=== PATIENT | female | born 1950 | race Caucasian/White ===

== ENCOUNTER → 2017-01-09 | Outpatient (CLI) | payer MEDICARE, OTHER ==
[2017-01-09 13:12] VITALS: BP 115/70; PULSE 66; RESP 18; TEMP 98
--- NOTE | 2017-01-09 13:32 | P.PN ---
Progress Note - Text Patient returns for followup for chronic back pain with radiation to hips. Patient last underwent LESI series ending in March 2014 which helped her significantly with the pain in her low back, and she does not have significant numbness/tingling in her lower extremities. Patient takes no narcotic medications for pain. Patient denies adverse drug effects from medications. Today, pt denies new-onset weakness, bowel/bladder incontinence, or any other signs or symptoms of cauda equina syndrome. There are no signs of acute intoxication, and no indications of medication diversion or overuse. In addition to above, 13-point review of systems is also negative for chest pain , shortness of breath, changes in vision, changes in hearing, new onset weakness , abdominal pain, diarrhea, extreme fatigue, malaise, fever, skin changes, homicidal or suicidal ideation, or bowel or bladder incontinence. Vital Signs: Reviewed in EMR Gen: WDWN, AAOx3, NAD HEENT: NCAT, EOMI, hearing grossly normal Pulm: resp unlabored Abd: soft, NT, ND Neck: supple, trachea midline ROM in flexion lumbar spine: reduced ROM in extension lumbar spine: reduced Lumbar paravertebral tenderness: + Facet loading: + L side SI joint tenderness: + L side Lan's test: neg Straight leg raise: neg Neuro: CN II-XII grossly intact, muscle strength lower extremities PRESERVED Imaging: MRI lumbar spine dated 11/03/2016 demonstrates spinal canal stenosis with hypertrophic facet changes of the T12-L1 level. There is also spinal canal stenosis with narrow anterior-posterior diameter at the L3-L4 level. There are no other facet changes. 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 Assessment: 1. lumbar spinal stenosis 2. scoliosis 3. chronic pain syndrome Plan: 1. Explanation: Opioid and psychological risk scores were reviewed. Diagnoses , prognoses, and multiple treatment options including but not limited to physical therapy, interventional therapies, adjuvant medical therapies, narcotic medication therapies, and surgery were discussed with the patient and all questions were answered to the patient's satisfaction. 2. Opioid agreement: no opioids prescribed today 3. Counseling: The patient was counseled extensively on BODY MASS INDEX, EXERCISE. Specifically, the patient was instructed regarding the importance of weight control, and exercise in the context of both chronic pain and overall health. 4. Procedures: LESI series 5. Consultations: None 6. Investigations: None 7. Medications: none prescribed 8. Disposition: f/u for procedure as scheduled PQRS measures: 1-Patient's medications are documented in the chart. 2-Tobacco use is negative 3-Patient has not had a pneumococcal vaccine. 4-Advanced care planning discussed, patient unable to give. 5-Opioid contract NOT signed with the patient. 6-Pain positive, follow-up visit or procedure scheduled 7-Patient's blood pressure measured and documented, and WNL. 8-Patient's weight was measured, and body mass index ABOVE the normal limits, and counseling was done. Patient instructed to follow up with PCP. 9-Patient WAS NOT identified as an unhealthy alcohol user.
== END ==
LOC: PNWHC3 12:06
PROVIDERS: ATTEND Anesthesiology
DX: M48.06 Spinal stenosis, lumbar region (principal); M41.86 Other forms of scoliosis, lumbar region; Z79.891 Long term (current) use of opiate analgesic
CPT/HCPCS: 99211

== ENCOUNTER 2017-01-14 09:12 | Day surgery (SDC) | payer MEDICARE, OTHER ==
[2017-01-10 12:42] VITALS: BMI 40.7
[~2017-01-14 09:12] MED LIST: LACTATED RINGERS 1,000 ML IV SCH
[2017-01-14 09:54] VITALS: RESP 16; TEMP 97.7
[2017-01-14] MEDS ORDERED: LIDOCAINE 1% 20 ML VIAL (10MG/ML) FOR IV START INTRADERMA ONE (09:59)
--- NOTE | 2017-01-14 10:43 | P.PCN ---
Date of Procedure: 01/14/17 Preoperative Diagnosis: Postoperative Diagnosis: Procedure(s) Performed: Implants: Surgeon: Bob Sauceda Pathology: none sent Condition: stable Disposition: PACU Indications for Procedure: Operative Findings: Description of Procedure: PREOPERATIVE DIAGNOSIS: Lumbar DDD POSTOPERATIVE DIAGNOSIS: Lumbar DDD PROCEDURE: 1. Caudal epidural steroid injection under fluoroscopic guidance. 2. Caudal epidurogram. ANESTHESIA: Local with 1% lidocaine; IV sedation EBL: None. PROCEDURE INDICATION: This is a patient with lumbar DDD and radicular symptoms with uncontrolled pain who presents for caudal CHINTAN today. No use of blood thinners. PROCEDURE DESCRIPTION: The patient was seen and identified in the preoperative area. Risks, benefits, complications, and alternatives were discussed with the patient including but not limited to bleeding, infection, nerve damage, incomplete pain relief, and allergic reactions to medications. The patient agreed to proceed with the procedure and signed the consent. IV was started, and vital signs were stable. Patient was taken to the OR and time out was completed to verify proper patient , procedure, and laterality of pain. The patient was placed in the prone position on procedure table and a pillow was placed under the abdomen to reduce lumbar lordosis. The lumbosacral area was prepped and draped in the usual sterile fashion. Vital signs were closely monitored during the procedure. Using lateral fluoroscopy the anterior-posterior plates of the sacrum were identified and the skin and deeper tissues corresponding into sacrococcygeal ligament were anesthetized using approximately 1 mL of 1% lidocaine. Then under fluoroscopy, a 3-1/2-inch 20-gauge Tuohy epidural needle was guided through the sacrococcygeal ligament, and into the epidural space. After negative aspiration , a 1 mL of omnipaque-300 contrast dye was injected with excellent epidurogram. Again after negative aspiration for CSF, blood, and with no paresthesias, a solution containing Decadron 20mg, 2ml of 1% preservative free lidocaine with 8 ml of preservative free normal saline (total of 12 ml) solution was injected with washout of epidurogram. Needle was withdrawn intact. Skin was cleansed, and bandage was applied. COMPLICATIONS: None. COMMENTS: DISPOSITION / PLANS: The patient was placed in a supine position and transferred to the recovery area in a stable condition for observation and was discharged from the recovery room after meeting discharge criteria. Home discharge instructions given to the patient by the staff. The patient was reexamined prior to discharge. The patient will schedule a repeat procedure ( caudal CHINTAN) in 4-6 weeks.
--- NOTE | 2017-01-14 10:51 | FL ---
EXAMINATION TYPE: FL guided pain mgmt statistic DATE OF EXAM: 01/14/2017 HISTORY: Pain 10 SEC FL, 3 FILMS SCANNED
[2017-01-14 11:35] VITALS: BP 107/66; PULSE 62
== END 2017-01-14 11:45 | disposition home or self-care (01) ==
LOC: ORPAIN 09:12
PROVIDERS: ATTEND Anesthesiology
DX: G89.4 Chronic pain syndrome (principal); M51.16 Intervertebral disc disorders with radiculopathy, lumbar region; M48.06 Spinal stenosis, lumbar region; M41.9 Scoliosis, unspecified
CPT/HCPCS: 62323; J2250; J1100; Q9965; J3010; 99152

== ENCOUNTER 2017-02-06 06:22 | Day surgery (SDC) | payer MEDICARE, OTHER ==
[2017-01-30 14:59] VITALS: BMI 40.7
[2017-02-06] MEDS ORDERED: LACTATED RINGERS 1,000 ML IV SCH (07:15)
[2017-02-06 07:22] VITALS: RESP 18
[2017-02-06] MEDS ORDERED: LIDOCAINE 1% 20 ML VIAL (10MG/ML) FOR IV START INTRADERMA ONE (07:33)
--- NOTE | 2017-02-06 08:02 | P.PCN ---
Date of Procedure: 02/06/17 Preoperative Diagnosis: Postoperative Diagnosis: Procedure(s) Performed: Implants: Surgeon: Bob Sauceda Pathology: none sent Condition: stable Disposition: PACU Indications for Procedure: Operative Findings: Description of Procedure: PREOPERATIVE DIAGNOSIS: Lumbar radiculitis POSTOPERATIVE DIAGNOSIS: Lumbar radiculitis PROCEDURE: 1. Caudal epidural steroid injection under fluoroscopic guidance. 2. Caudal epidurogram. ANESTHESIA: Local with 1% lidocaine; IV sedation EBL: None. PROCEDURE INDICATION: This is a patient with lumbar DDD and radicular symptoms with uncontrolled pain who presents for caudal CHINTAN today. No use of blood thinners. PROCEDURE DESCRIPTION: The patient was seen and identified in the preoperative area. Risks, benefits, complications, and alternatives were discussed with the patient including but not limited to bleeding, infection, nerve damage, incomplete pain relief, and allergic reactions to medications. The patient agreed to proceed with the procedure and signed the consent. IV was started, and vital signs were stable. Patient was taken to the OR and time out was completed to verify proper patient , procedure, and laterality of pain. The patient was placed in the prone position on procedure table and a pillow was placed under the abdomen to reduce lumbar lordosis. The lumbosacral area was prepped and draped in the usual sterile fashion. Vital signs were closely monitored during the procedure. Using lateral fluoroscopy the anterior-posterior plates of the sacrum were identified and the skin and deeper tissues corresponding into sacrococcygeal ligament were anesthetized using approximately 1 mL of 1% lidocaine. Then under fluoroscopy, a 3-1/2-inch 20-gauge Tuohy epidural needle was guided through the sacrococcygeal ligament, and into the epidural space. After negative aspiration , a 1 mL of omnipaque-300 contrast dye was injected with excellent epidurogram. Again after negative aspiration for CSF, blood, and with no paresthesias, a solution containing Decadron 20mg, 2ml of 1% preservative free lidocaine with 8 ml of preservative free normal saline (total of 12 ml) solution was injected with washout of epidurogram. Needle was withdrawn intact. Skin was cleansed, and bandage was applied. COMPLICATIONS: None. COMMENTS: DISPOSITION / PLANS: The patient was placed in a supine position and transferred to the recovery area in a stable condition for observation and was discharged from the recovery room after meeting discharge criteria. Home discharge instructions given to the patient by the staff. The patient was reexamined prior to discharge. The patient will schedule a follow-up in clinic in 4-6 weeks.
[2017-02-06] MEDS ORDERED: IV FLUID CONTINUATION 1,000 ML IV ONE ×2 (08:10)
--- NOTE | 2017-02-06 08:15 | FL ---
EXAMINATION TYPE: FL guided pain mgmt statistic DATE OF EXAM: 02/06/2017 HISTORY: Flouroscopy time 19 seconds of fluoroscopy provided. IMPRESSION: 1. Fluoroscopy time.
[2017-02-06 08:29] VITALS: BP 122/59; PULSE 60
== END 2017-02-06 08:41 | disposition home or self-care (01) ==
LOC: ORPAIN 06:22
PROVIDERS: ATTEND Anesthesiology
DX: G89.4 Chronic pain syndrome (principal); M51.16 Intervertebral disc disorders with radiculopathy, lumbar region; M48.06 Spinal stenosis, lumbar region; M41.9 Scoliosis, unspecified
CPT/HCPCS: 62323; J2250; J1100; J3010; 62264; 99152

== ENCOUNTER → 2017-03-18 | Outpatient (CLI) | payer MEDICARE, OTHER ==
[2017-03-18 10:37] VITALS: BP 154/81; PULSE 78; RESP 16
--- NOTE | 2017-03-18 10:54 | P.PN ---
Progress Note - Text This is a 67-year-old female with axial lower back pain. The patient had 2 caudal epidural steroid injection previously but she only felt 3-4 days of pain relief. The patient is morbidly obese alert oriented 3 no apparent distress. She has positive lumbar facet loading. Neuro exam of the lower extremities showed normal and symmetrical muscle strength but absent deep tendon tendon reflexes bilaterally and symmetrically. The patient denies any weight loss or any bowel or bladder dysfunction ,she also denies any nocturnal pain. I think we should try diagnostic medial branch block due to the patient's axial lower back pain and if it does help her pain then we'll plan on doing RFA in the future.
== END ==
LOC: PNWHC3 10:11
PROVIDERS: ATTEND Anesthesiology
DX: M54.5 Low back pain (principal); E66.01 Morbid (severe) obesity due to excess calories; Z79.891 Long term (current) use of opiate analgesic
CPT/HCPCS: 99211

== ENCOUNTER 2017-04-04 06:28 | Day surgery (SDC) | payer MEDICARE, OTHER ==
[2017-04-01 16:37] VITALS: BMI 40.7
[2017-04-04] MEDS ORDERED: LACTATED RINGERS 1,000 ML IV SCH (07:00)
[2017-04-04 07:10] VITALS: RESP 16; TEMP 97.8
[2017-04-04] MEDS ORDERED: LIDOCAINE 1% 20 ML VIAL (10MG/ML) FOR IV START INTRADERMA ONE (07:10)
--- NOTE | 2017-04-04 07:56 | P.PCN ---
Postoperative Diagnosis: PREOPERATIVE DIAGNOSIS : 1- Lumbar spondylosis with Facet Arthropathy without myelopathy . 2- Lumber degenerative disc disease POSTOPERATIVE DIAGNOSIS: 1- Lumbar spondylosis with Facet Arthropathy without myelopathy . 2- Lumber degenerative disc disease PROCEDURE: Diagnostic bilateral L3 -4 , L4 -5 , and L5-S1 medial branch block under fluoroscopy #1 ANESTHESIA: Local with 1% lidocaine 6 ml ; IV sedation with Versed 2 mg and Fentanyl 100 mcg. EBL: Minimal COMPLICATION: None. IV FLUIDS: 100 mL of normal saline. PROCEDURE INDICATION: Chronic low back pain secondary to Facet arthropathy unresponsive to conservative treatment. PROCEDURE DESCRIPTION: the patient was seen and identified in the preop holding area , risks and benefits and possible complications of the procedure and alternative were discussed with the patient, and the patient agreed to proceed with the procedure and signed the consent IV was started and vital signs monitored during the procedure and fluoroscopy was used to maximize the benefit and accuracy of the needle placement, and sedation was given to decrease patient anxiety, patient was taken to the procedure room and placed in prone position vital signs monitored in the back prepped with chlorhexidine X3 then under strict sterile technique using a right oblique fluoroscopy ,the junction of the transverse process and the superior articulating process of the right L3- 4 , L4- 5, and L5-S1 vertebra which corresponding to the fluoroscopy image of the eye of the Aniceto dog on the block side for the medial branches and subsequently , after local infiltration of skin and subcu tissuies with lidocaine 1% one mL at each level ,then 22- gauge Quincke-type needles , 3 needle was used , each one of them placed at the junction of the base of the transverse process and the superior articular process at the appropriate level, and the needle was advanced until the periosteum contacted, needle placement confirmed with AP oblique and lateral view and after appropriate needle placement confirmed, and after negative aspiration for heme and CSF and there was no paresthesia 1-1/2 mL of Marcaine 0.5% mixed with 40 mg Kenalog , then half mL injected at each level after negative aspiration the needle subsequently removed and the same procedure repeated for the left side at left side at L3-4, L4- 5 and L5-S1 levels. At the end of the procedure and the needles removed and a bandage applied after the skin was cleaned the cleaning solution patient taken to recovery room in stable condition and monitors in the recovery room for 20-30 minutes and discharged home in stable condition after discharge criteria met and patient will follow up with the pain clinic in 2-4 weeks
[2017-04-04] MEDS ORDERED: IV FLUID CONTINUATION 1,000 ML IV ONE (08:00)
[2017-04-04 08:20] VITALS: BP 119/73; PULSE 67
--- NOTE | 2017-04-04 11:37 | FL ---
Fluoroscopy HISTORY: Pain 12 seconds fluoroscopy time supplied to the referring clinician. 4 intraoperative C-arm images docum ent the procedure. See dictated report from anesthesia.
== END 2017-04-04 08:33 | disposition home or self-care (01) ==
LOC: ORPAIN 06:28
PROVIDERS: ATTEND Specialist
DX: G89.29 Other chronic pain (principal); M46.96 Unspecified inflammatory spondylopathy, lumbar region; M51.36 Other intervertebral disc degeneration, lumbar region; M47.816 Spondylosis without myelopathy or radiculopathy, lumbar region; I10 Essential (primary) hypertension
CPT/HCPCS: 64493; 64494; 64495; 99152; J2250; J3301; J3010

== ENCOUNTER → 2017-07-02 | Outpatient (CLI) | payer MEDICARE, OTHER ==
--- NOTE | 2017-07-02 13:05 | US ---
EXAMINATION TYPE: US pelvis complete transvag DATE OF EXAM: 07/02/2017 COMPARISON: NONE CLINICAL HISTORY: N95.0 Post menopausal bleeding. Patient states bleeding for 5 days in March TECHNIQUE: Transvaginal (TV) and Transabdominal (TA) Date of LMP: MATHEMATICS ACADEMIC CHAIR, EXAM MEASUREMENTS: Uterus: 7.4 x 4.4 x 3.4 cm Endometrial Stripe: 0.5 cm 1. Uterus: Retroverted Mid/left echogenic lesion in ESSENCE = 1.6 x 1.7 x 1.8 cm 2. Endometrium: wnl 3. Right Ovary: Obscured by overlying bowel gas 4. Left Ovary: Obscured by overlying bowel gas 5. Bilateral Adnexa: wnl 6. Posterior cul-de-sac: no free fluid IMPRESSION: 1. Intramural left lower uterine segment solitary probable leiomyoma. 2. Endometrial thickness is upper limits of normal for a postmenopausal female. Direct visualization should be considered in this patient with postmenopausal bleeding. 3. Nonvisualization of the ovaries.
== END | disposition home or self-care (01) ==
LOC: RADUSWWP 12:11
PROVIDERS: ATTEND Obstetrics & Gynecology
DX: N95.0 Postmenopausal bleeding (principal)
CPT/HCPCS: 76830; 76856

== ENCOUNTER 2017-07-10 08:28 | Day surgery (SDC) | payer MEDICARE, OTHER ==
[2017-07-03 23:05] VITALS: BMI 40.7
[2017-07-10 09:05] VITALS: TEMP 97.2
[2017-07-10] MEDS ORDERED: LIDOCAINE 1% 20 ML VIAL (10MG/ML) FOR IV START INTRADERMA ONE (09:28)
--- NOTE | 2017-07-10 10:25 | P.PCN ---
Date of Procedure: 07/10/17 Procedure(s) Performed: PREOPERATIVE DIAGNOSIS: 1-Lumbar Spondylosis with Facet Arthropathy without myelopathy. 2- Lumber degenerative disc disease. POSTOPERATIVE DIAGNOSIS: 1- Lumbar Spondylosis with Facet Arthropathy without myelopathy. 2- Lumber degenerative disc disease. PROCEDURES : Right Radiofrequency thermocoagulation, L3-L4, L4-L5, and L5-S1 medial branch, with fluoroscopic guidance ANESTHESIA: Moderate sedation with intravenous versed 2 mg and fentaneyl 100 mcg and local infiltration with lidocaine 1% 6 ml EBL: Minimal PROCEDURE INDICATION: The patient with low back pain secondary to lumbar facet arthropathy who had more than 50% relief of her pain with previous diagnostic lumbar medial branch block with bupivacaine. PROCEDURE DESCRIPTION / TECHNIQUE: The patient was seen and identified in the preoperative area. Risks, benefits, complications, including but not limited to risk of infection ,bleeding , allergic reactions to the medications and no complete pain releife , and alternatives were discussed with the patient, the patient agreed to proceed with the procedure and signed the consent. IV was started. Vital signs remained stable throughout the procedure. Patient was taken to the OR and time out was completed. The patient was placed in the prone position on the procedure table. The lumber area was prepped and draped in the usual sterile fashion. . Vital signs were closely monitored during the procedure .IV sedation was used during the procedure to decrease patients anxiety. Using AP and then oblique fluoroscopy, the ``eye of the Aniceto dog corresponding to the connection between the superior and transverse articular processes of right L3, L4, and L5 were identified, marked, and localized with 1 % lidocaine. Subsequently, a 18 [id number] radiofrequency cannula with a 10- mm active tip was advanced guided by fluoroscopy to each of the ``eyes of the Aniceto dog at right L3, L4, and L5. Each site then underwent sensory testing at 50 Hz and 0 to 1 volt and motor testing at 2.5 Hz and 0 to 3 volt with local stimulation, but no radicular symptoms down the legs. Thereafter the right L3-4, L4-5, and L5-S1 sites underwent radiofrequency thermocoagulation at 80 degrees celsius for 90 seconds after injecting 0.5 ml of PF lidocaine 1%. then After the thermocoagulation done , 1 ml of the block solution containing Kenalog 40 mg and 3 ml of marain 0.5% was injected at the right L3- 4 , L4-5 , and L5-S1, levels after negative aspiration of CSF and blood and with no paresthesias. Cannulas were retracted while injecting lidocaine 1% until the needle is out. At the end of the procedure, the skin was cleansed and bandages were applied. COMPLICATIONS: No acute complications. DISPOSITION / PLANS: The patient was placed in a supine position and transferred to the recovery area in a stable condition for observation and was discharged from the recovery room after meeting discharge criteria. Home discharge instructions given to the patient by the staff. The patient was reexamined prior to discharge. The patient will schedule a follow up in the clinic in 2-4 weeks.
[2017-07-10] MEDS ORDERED: IV FLUID CONTINUATION 800 ML IV ONE (10:44)
[2017-07-10 11:03] VITALS: BP 122/70; PULSE 68; RESP 18
--- NOTE | 2017-07-10 11:20 | FL ---
Fluoroscopy HISTORY: Pain 10 seconds fluoroscopy time supplied to the referring clinician. 3 intraoperative C-arm images docum ent the procedure. See dictated report from anesthesia.
== END 2017-07-10 11:14 | disposition home or self-care (01) ==
LOC: ORPAIN 08:28
PROVIDERS: ATTEND Specialist
DX: M47.816 Spondylosis without myelopathy or radiculopathy, lumbar region (principal); M51.36 Other intervertebral disc degeneration, lumbar region; I10 Essential (primary) hypertension; Z86.718 Personal history of other venous thrombosis and embolism; J45.909 Unspecified asthma, uncomplicated; G47.33 Obstructive sleep apnea (adult) (pediatric)
CPT/HCPCS: 64635; 64636 ×2; J2250; J3301; J3010; 99152

== ENCOUNTER → 2017-08-14 | Outpatient (CLI) | payer MEDICARE, OTHER ==
[2017-08-14 15:06] VITALS: BP 151/81; PULSE 79; RESP 16
--- NOTE | 2017-08-14 15:40 | P.PN ---
Subjective Progress Note Date: 08/14/17 This is 67 years old female with a chronic history of severe low back pain, diagnosed with lumbar spondylosis, with done diagnostic medial branch block which was successful later on we did radiofrequency ablation of the medial branch lumbar area, she reported that the radiofrequency ablation of the medial branch lumbar area helped her low back pain significantly, she is able to ambulate without pain and she is able to do activities of daily livings without any pain, she is very satisfied with the result of the treatment for this reason patient will follow up with the pain clinic when necessary Objective - Vital Signs Vital signs: Vital Signs Temp Pulse 79 08/14/17 14:56 Resp 16 08/14/17 14:56 BP 151/81 08/14/17 14:56 Pulse Ox 93 L 08/14/17 14:56 Intake & Output 08/13/17 08/14/17 08/14/17 18:59 06:59 18:59 Weight 117.934 kg
== END ==
LOC: PNWHC3 14:22
PROVIDERS: ATTEND Specialist
DX: G89.29 Other chronic pain (principal); M47.812 Spondylosis without myelopathy or radiculopathy, cervical region; Z98.890 Other specified postprocedural states
CPT/HCPCS: 99211

== ENCOUNTER → 2017-09-17 | Outpatient (CLI) | payer MEDICARE, OTHER ==
[2017-09-17 13:28] LABS: Collection Time,Urine 24 hrs; Total Volume 24 Hour,Urine 1200 mls (250-2400)
[2017-09-17 13:43] LABS: Total Protein 24 Hour,Urine 96 mg/24hr (42.0-225.0)
== END | disposition home or self-care (01) ==
LOC: LABWHC1 10:08
PROVIDERS: ATTEND Nurse Practitioner Family
DX: N18.3 Chronic kidney disease, stage 3 (moderate) (principal); R80.9 Proteinuria, unspecified
CPT/HCPCS: 81050; 84156

== ENCOUNTER → 2017-10-04 | Outpatient (CLI) | payer MEDICARE, OTHER ==
--- NOTE | 2017-10-04 13:02 | US ---
EXAMINATION TYPE: US kidneys/renal and bladder DATE OF EXAM: 10/04/2017 COMPARISON: NONE CLINICAL HISTORY: N18.3 Chronic kidney disease stage III R60.9 Edema. CKD stage III EXAM MEASUREMENTS: Right Kidney: 10.6 x 4.8 x 3.5 cm Left Kidney: 10.2 x 4.7 x 4.0 cm Technical limitations due to patient's body habitus and overlying bowel content Right Kidney: limited evaluation, hypoechoic area (possible cystic area) upper pole = 2.2 x 2.1 x 2.1 cm Left Kidney: limited evaluation, probable cystic area upper pole = 1.5 x 1.6 x 1.5cm Bladder: appears wnl Bilateral Jets seen: no Bilateral renal cysts have some internal echoes which may be due to technical factors. Complex cyst s hould be considered. Follow-up is recommended. IMPRESSION: Bilateral renal cysts cannot be classified as simple cysts. Follow-up examinations are recommended.
--- NOTE | 2017-10-05 12:26 | ECHOF ---
Referral Reason:N18.3 Chronic kidney disease stage III R60.9 Edema MEASUREMENTS -------- HEIGHT: 170.2 cm WEIGHT: 120.2 kg BP: RVIDd: 2.5 cm (< 3.3) IVSd: 1.4 cm (0.6 - 1.1) LVIDd: 3.9 cm (3.9 - 5.3) LVPWd: 1.4 cm (0.6 - 1.1) IVSs: 1.3 cm LVIDs: 2.5 cm LVPWs: 1.2 cm LAESV Index (A-L): 18.19 ml/m Ao Diam: 3.1 cm (2.0 - 3.7) AV Cusp: 2.1 cm (1.5 - 2.6) LA Diam: 3.2 cm (2.7 - 3.8) MV E Shlomo: 0.71 m/s MV DecT: 368 ms MV A Shlomo: 0.98 m/s MV E/A Ratio: 0.73 AV maxP.97 mmHg AV meanP.21 mmHg RAP: 5.00 mmHg RVSP: 18.49 mmHg FINDINGS -------- Sinus rhythm. This was a technically difficult study with suboptimal views. The left ventricular size is normal. There is mild concentric left ventricular hypertrophy. Overa ll left ventricular systolic function is normal with, an EF between 55 - 60 %. The right ventricle is normal in size and function. Normal LA size by volume 22+/-6 ml/m2. The right atrium is normal in size. 3ml of Lumason was utilized for enhancement of images. Aortic valve is trileaflet and is mildly thickened. There is no evidence of aortic regurgitation. There is mild aortic stenosis present. The mitral valve leaflets are mildly thickened. There is trace to mild mitral regurgitation. Trace tricuspid regurgitation present. Right ventricular systolic pressure is normal at < 35 mmHg. There is no evidence of pulmonary hypertension. The pulmonic valve was not well visualized. The aortic root size is normal. Normal inferior vena cava with normal inspiratory collapse consistent with estimated right atrial pre ssure of 5 mmHg. There is no pericardial effusion. CONCLUSIONS -------- 1. Sinus rhythm. 2. This was a technically difficult study with suboptimal views. 3. The left ventricular size is normal. 4. There is mild concentric left ventricular hypertrophy. 5. Overall left ventricular systolic function is normal with, an EF between 55 - 60 %. 6. Normal LA size by volume 22+/-6 ml/m2. 7. 3ml of Lumason was utilized for enhancement of images. 8. Aortic valve is trileaflet and is mildly thickened. 9. There is mild aortic stenosis present. 10. The mitral valve leaflets are mildly thickened. 11. There is trace to mild mitral regurgitation. 12. Trace tricuspid regurgitation present. 13. Right ventricular systolic pressure is normal at < 35 mmHg. 14. There is no evidence of pulmonary hypertension. 15. The pulmonic valve was not well visualized. 16. The aortic root size is normal. 17. There is no pericardial effusion. [employer] LAB[employer]ER: Finn Huggins RDCS
== END | disposition home or self-care (01) ==
LOC: RADUSMAIN 11:59
PROVIDERS: ATTEND Internal Medicine Nephrology
DX: N28.1 Cyst of kidney, acquired (principal); N18.3 Chronic kidney disease, stage 3 (moderate); I08.0 Rheumatic disorders of both mitral and aortic valves
CPT/HCPCS: 76770; C8929; Q9950; 93306

== ENCOUNTER → 2019-02-02 | Outpatient (CLI) | payer MEDICARE, OTHER ==
--- NOTE | 2019-02-02 12:02 | MM ---
Reason for exam: screening (asymptomatic). Last mammogram was performed 1 year and 8 months ago. History: Patient is postmenopausal. Family history of breast cancer in mother at age 69. Benign core biopsy of the right breast. Physical Findings: A clinical breast exam by your physician is recommended on an annual basis and results should be correlated with mammographic findings. MG 3D Screening Mammo W/Cad Bilateral CC, MLO, and XCCL view(s) were taken. Prior study comparison: June 13, 2017, bilateral MG 3d screening mammo w/cad. April 24, 2016, bilateral MG 3d screening mammo w/cad. There are scattered fibroglandular densities. Benign appearing bilateral calcifications. No suspicious abnormality. No significant changes when compared with prior studies. ASSESSMENT: Benign, BI-RAD 2 RECOMMENDATION: Routine screening mammogram of both breasts in 1 year.
== END | disposition home or self-care (01) ==
LOC: RADMAMWWP 07:04
PROVIDERS: ATTEND Family Medicine
DX: Z12.31 Encounter for screening mammogram for malignant neoplasm of breast (principal)
CPT/HCPCS: 77063; 77067

== ENCOUNTER 2019-04-02 10:12 | Emergency (ER) | payer MEDICARE, OTHER ==
[2019-04-02] MEDS ORDERED: SODIUM CHLORIDE 0.9% 1,000 ML IV STA (10:59)
[2019-04-02] MEDS ORDERED: MECLIZINE 12.5 MG TAB PO STA (10:59)
[2019-04-02] MEDS ORDERED: METOCLOPRAMIDE 5 MG/ML 2 ML VIAL IVP STA (10:59)
--- NOTE | 2019-04-02 11:09 | ED ---
General Adult HPI - General Chief complaint: Dizziness Stated complaint: Dizzy Time Seen by Provider: 04/02/19 10:29 Source: patient Mode of arrival: ambulatory Limitations: no limitations - History of Present Illness Initial comments: Dictation was produced using [employer] ([employer]) dictation software. please excuse any grammatical, word or spelling errors. Chief Complaint: 69-year-old female with past medical history of vertigo pres ents with vertiginous symptoms since Saturday. History of Present Illness: Patient is a 69-year-old female she has past medical history of BPPV. She has been evaluated extensively on outpatient basis by her primary care physician Dr. Mercado. Patient states that she had 1 hour long episode of vertigo on Saturday that resolved on its on. Yesterday she had a whole day of vertiginous symptoms. Feels as though the room spinning. She reports that at rest her symptoms go away. She feels worse when she moves her head towards the right. Patient denies any difficulties ambulating. She does complain of some bilateral ear ringing. She has history of ear infections. She denies any symptoms at rest. She only complains of symptoms with moving. The ROS documented in this emergency department record has been reviewed and confirmed by me. Those systems with pertinent positive or negative responses have been documented in the HPI. All other systems are other negative and/or noncontributory. PHYSICAL EXAM: General Impression: Alert and oriented x3, not in acute distress HEENT: Normocephalic atraumatic, extra-ocular movements intact, pupils equal and reactive to light bilaterally, mucous membranes moist, bilateral TMs clear of effusion Cardiovascular: Heart regular rate and rhythm, S1&S2 audible, no murmurs, rubs or gallops Chest: Lungs clear to auscultation bilaterally, no rhonchi, no wheeze, no rales Abdomen: Bowel sounds present, abdomen soft, non-tender, non-distended, no organ omegaly Musculoskeletal: Pulses present and equal in all extremities, no peripheral edema Motor: no focal deficits noted Neurological: CN II-XII grossly intact, no focal motor or sensory deficits not ed, right beating nystagmus with fast phase to the right. No nystagmus with looking to the left. Skin: Intact with no visualized rashes Psych: Normal affect and mood ED course: 69-year-old female presents with episode of vertigo. She has history of vertigo. All signs upon arrival are within acceptable limits. No concern for central cause of vertigo given that her symptoms are relieved with rest. Laboratory evaluation obtained. CBC and metabolic panel is unremarkable. Patient treated with intravenous fluids, antiemetics and anti-vertiginous medications per she is observed in emergency department for several minutes. She is reevaluated with dramatic improvement of symptoms. He isn't M auditory at baseline. She ambulated to the restroom and back with no complication. She feels well. His point patient's clinical presentation concerning for benign paroxysmal positional vertigo versus other peripheral causes of vertigo. No concern for central cause of vertigo. Patient feels comfortable being discharged she will follow up with a primary care physician. Prescription provided for Antivert. Temperature discussed. Patient clear for discharge. EKG interpretation: Ventricular rate 67, normal sinus rhythm, ID interval 176, QRS 86, QTC 443. No ID prolongation, no QTC prolongation, no ST or T-wave changes noted. No old EKG for comparison Overall, this EKG is unremarkable - Related Data Home Medications Medication Instructions Recorded Confirmed Furosemide [Lasix] 20 mg PO BID 01/11/14 04/02/19 Lovastatin [Mevacor] 40 mg PO DAILY 01/11/14 04/02/19 Metoprolol Succinate [Toprol XL] 50 mg PO QAM 01/11/14 04/02/19 Olmesartan/Hydrochlorothiazide 0.5 tab PO QAM 01/11/14 04/02/19 [Benicar Hct 40-12.5 mg Tablet] rOPINIRole HCL [Requip] 1 mg PO HS 01/11/14 04/02/19 Calcium Citrate/Vitamin D3 1 tab PO DAILY 01/09/17 04/02/19 [Calcitrate + Vit D Caplet] Magnesium 400 mg PO DAILY 01/09/17 04/02/19 Omeprazole [PriLOSEC] 20 mg PO DAILY 01/09/17 04/02/19 traMADol HCL [Ultram] 100 mg PO BID PRN 01/09/17 04/02/19 Albuterol Sulfate [Proventil Hfa] 1 puff INHALATION RT-Q4H PRN 04/02/19 04/02/19 Cholecalciferol [Vitamin D3 (25 1,000 unit PO DAILY 04/02/19 04/02/19 Mcg = 1000 Iu)] Ferrous Sulfate [Feosol] 325 mg PO DAILY 04/02/19 04/02/19 Gabapentin [Neurontin] 100 mg PO TID 04/02/19 04/02/19 Potassium Chloride ER [K-Dur 10] 10 meq PO DAILY 04/02/19 04/02/19 Previous Rx's Medication Instructions Recorded Meclizine [Antivert] 25 mg PO TID PRN #15 tab 04/02/19 Allergies Allergy/AdvReac Type Severity Reaction Status Date / Time No Known Allergies Allergy Verified 04/02/19 11:07 Review of Systems ROS Statement: Those systems with pertinent positive or pertinent negative responses have been documented in the HPI. ROS Other: All systems not noted in ROS Statement are negative. Past Medical History Past Medical History: Asthma, Deep Vein Thrombosis (DVT), Hyperlipidemia, Hypertension, Osteoarthritis (OA), Renal Disease, Sleep Apnea/CPAP/BIPAP Additional Past Medical History / Comment(s): SARCOIDOSIS. DVT RT LEG 1998. NO TX FOR SLEEP APNEA NOW. KIDNEY DISEASE IS STAGE 3. CHRONIC BACK PAIN. History of Any Multi-Drug Resistant Organisms: None Reported Past Surgical History: Joint Replacement, Orthopedic Surgery Additional Past Surgical History / Comment(s): TOTAL RT KNEE. SHANE HIP REPLACEMENTS. PAIN PROCEDURES, D&C. RT KNEECAP STAPELED. EXC SPUR RT FOOT. LT FOOT TENDON SHORTENED. Past Anesthesia/Blood Transfusion Reactions: Postoperative Nausea & Vomiting (PONV) Additional Past Anesthesia/Blood Transfusion Reaction / Comment(s): PONV AFTER SPINAL/HEADACHE Past Psychological History: No Psychological Hx Reported Smoking Status: Never smoker Past Alcohol Use History: None Reported Past Drug Use History: None Reported - Past Family History Mother Family Medical History: Cancer Father Family Medical History: Cancer General Exam Limitations: no limitations Course Vital Signs 04/02/19 10:14 Temperature 97.4 F L Pulse Rate 67 Respiratory 20 Rate Blood Pressure 149/79 O2 Sat by Pulse 99 Oximetry Medical Decision Making - Lab Data Result diagrams: 04/02/19 11:15 04/02/19 11:15 Lab Results 04/02/19 04/02/19 Range/Units 11:15 11:15 WBC 5.0 (3.8-10.6) k/uL RBC 4.05 (3.80-5.40) m/uL Hgb 12.3 (11.4-16.0) gm/dL Hct 37.3 (34.0-46.0) % MCV 92.0 (80.0-100.0) fL MCH 30.4 (25.0-35.0) pg MCHC 33.0 (31.0-37.0) g/dL RDW 13.1 (11.5-15.5) % Plt Count 193 (150-450) k/uL Neutrophils % 78 % Lymphocytes % 13 % Monocytes % 5 % Eosinophils % 2 % Basophils % 1 % Neutrophils # 3.9 (1.3-7.7) k/uL Lymphocytes # 0.7 L (1.0-4.8) k/uL Monocytes # 0.2 (0-1.0) k/uL Eosinophils # 0.1 (0-0.7) k/uL Basophils # 0.0 (0-0.2) k/uL Sodium 140 (137-145) mmol/L Potassium 4.2 (3.5-5.1) mmol/L Chloride 103 (98-107) mmol/L Carbon Dioxide 33 H (22-30) mmol/L Anion Gap 4 mmol/L BUN 15 (7-17) mg/dL Creatinine 1.25 H (0.52-1.04) mg/dL Est GFR (CKD-EPI)AfAm 50 (>60 ml/min/1.73 sqM) Est GFR (CKD-EPI)NonAf 44 (>60 ml/min/1.73 sqM) Glucose 114 H (74-99) mg/dL Calcium 9.5 (8.4-10.2) mg/dL Magnesium 2.1 (1.6-2.3) mg/dL Disposition Clinical Impression: Vertigo Disposition: HOME SELF-CARE Condition: Good Instructions (If sedation given, give patient instructions): Dizziness (ED) Prescriptions: Meclizine [Antivert] 25 mg PO TID PRN #15 tab PRN Reason: dizziness Is patient prescribed a controlled substance at d/c from ED?: No Referrals: Stuart Mercado MD [Primary Care Provider] - 1-2 days Time of Disposition: 13:09
[2019-04-02 11:38] LABS: Basophils % (A) 1 %; Eosinophils # (A) 0.1 k/uL (0-0.7); Eosinophils % (A) 2 %; HCT 37.3 % (34.0-46.0); HGB 12.3 gm/dL (11.4-16.0); Lymphocytes # (A) 0.7 k/uL (1.0-4.8); Lymphocytes % (A) 13 %; MCH 30.4 pg (25.0-35.0); Mean Platelet Volume 6.3; Monocytes # (A) 0.2 k/uL (0-1.0); Monocytes % (A) 5 %; Neutrophils # (A) 3.9 k/uL (1.3-7.7); Neutrophils % (A) 78 %; Platelet Count 193 k/uL (150-450); RBC 4.05 m/uL (3.80-5.40); RDW 13.1 % (11.5-15.5)
[2019-04-02 11:44] LABS: Calcium 9.5 mg/dL (8.4-10.2); Magnesium 2.1 mg/dL (1.6-2.3); Potassium 4.2 mmol/L (3.5-5.1)
[2019-04-02 13:34] VITALS: RESP 18
[2019-04-02 13:35] VITALS: BP 124/75; PULSE 64; TEMP 97.7
== END 2019-04-02 13:35 | disposition home or self-care (01) ==
LOC: EC 10:12
DX: H55.00 Unspecified nystagmus (principal); H93.13 Tinnitus, bilateral; J45.909 Unspecified asthma, uncomplicated; E78.5 Hyperlipidemia, unspecified; I12.9 Hypertensive chronic kidney disease with stage 1 through stage 4 chronic kidney disease, or unspecified chronic kidney disease; N18.3 Chronic kidney disease, stage 3 (moderate); M19.90 Unspecified osteoarthritis, unspecified site; Z79.899 Other long term (current) drug therapy; Z86.69 Personal history of other diseases of the nervous system and sense organs; Z96.643 Presence of artificial hip joint, bilateral; Z96.651 Presence of right artificial knee joint
CPT/HCPCS: 36415; 93005; 80048; 83735; 85025; 99284; 96374; 96361; J2765

== ENCOUNTER → 2019-12-22 | Outpatient (CLI) | payer MEDICARE, OTHER ==
--- NOTE | 2019-12-22 09:48 | US ---
EXAMINATION TYPE: US kidneys/renal and bladder DATE OF EXAM: 12/22/2019 COMPARISON: CT & US 2018 CLINICAL HISTORY: N28.1 RENAL CYST. EXAM MEASUREMENTS: Right Kidney: 10.2 x 4.6 x 4.6 cm Left Kidney: 11.4 x 5.0 x 5.0 cm Very limited exam due to patient body habitus and overlying bowel gas. Right Kidney: thinned cortex Left Kidney: lobular cortex. Bladder: not well distended Bilateral Jets seen: No Suboptimal study due to patient's large body habitus. Cortical thinning seen bilaterally. No new mo d or cystic lesion identified on images saved. No hydronephrosis noted bilaterally. Bladder poorly di stended and thus suboptimally evaluated. IMPRESSION: As above.
== END | disposition home or self-care (01) ==
LOC: RADUSWWP 09:02
PROVIDERS: ATTEND Internal Medicine Nephrology
DX: N32.89 Other specified disorders of bladder (principal); N28.89 Other specified disorders of kidney and ureter
CPT/HCPCS: 76770

== ENCOUNTER → 2020-05-19 | Outpatient (CLI) | payer MEDICARE, OTHER ==
--- NOTE | 2020-05-23 09:09 | MM ---
Reason for exam: screening (asymptomatic). Last mammogram was performed 1 year and 3 months ago. History: Patient is postmenopausal. Family history of breast cancer in mother at age 69. Benign core biopsy of the right breast. Physical Findings: A clinical breast exam by your physician is recommended on an annual basis and results should be correlated with mammographic findings. MG 3D Screening Mammo W/Cad Bilateral CC, MLO, and XCCL view(s) were taken. Prior study comparison: February 02, 2019, bilateral MG 3d screening mammo w/cad. June 13, 2017, bilateral MG 3d screening mammo w/cad. There are scattered fibroglandular densities. Focal asymmetry in the right breast. No significant changes when compared with prior studies. ASSESSMENT: Benign, BI-RAD 2 RECOMMENDATION: Routine screening mammogram of both breasts in 1 year.
== END | disposition home or self-care (01) ==
LOC: RADMAMWWP 09:08
PROVIDERS: ATTEND Family Medicine
DX: Z12.31 Encounter for screening mammogram for malignant neoplasm of breast (principal)
CPT/HCPCS: 77063; 77067

== ENCOUNTER → 2022-09-17 | Outpatient (CLI) | payer MEDICARE, OTHER ==
--- NOTE | 2022-09-18 08:40 | MM ---
Reason for Exam: Screening (asymptomatic). Last mammogram was performed 1 year(s) and 1 month(s) ago. Patient History: Menarche at age 13. First Full-Term at age 20. Postmenopausal. Benign Core Biopsy on the right side. Mother had breast cancer, age 69. Risk Values: Leah 5 year model risk: 3.6%. NCI Lifetime model risk: 8.3%. Prior Study Comparison: 02/02/2019 Bilateral Screening Mammogram, [facility]. 05/19/2020 Bilateral Screening Mammogram, [facility]. 08/11/2021 Bilateral Screening Mammogram, [facility]. Tissue Density: There are scattered fibroglandular densities. Findings: Analyzed By CAD. There is no suspicious group of microcalcifications or new suspicious mass in either breast. Benign round calcifications bilaterally. Asymmetric breast tissue in the right upper outer quadrant is stable. Overall Assessment: Benign, BI-RAD 2 Management: Screening Mammogram of both breasts in 1 year. A clinical breast exam by your physician is recommended on an annual basis and results should be correlated with mammographic findings. Electronically signed and approved by: Shyam Hernandez D.O.
== END | disposition home or self-care (01) ==
LOC: RADMAMWWP 07:31
PROVIDERS: ATTEND Family Medicine
DX: Z12.31 Encounter for screening mammogram for malignant neoplasm of breast (principal); Z78.0 Asymptomatic menopausal state; Z80.3 Family history of malignant neoplasm of breast
CPT/HCPCS: 77063; 77067

== ENCOUNTER → 2023-09-18 | Outpatient (CLI) | payer MEDICARE, OTHER ==
--- NOTE | 2023-09-18 17:51 | US ---
EXAMINATION TYPE: US kidneys/renal and bladder DATE OF EXAM: 09/18/2023 COMPARISON: NONE CLINICAL INDICATION: Female, 73 years old with history of N18.32 CHRONIC KID DISEASE S3B; EXAM MEASUREMENTS: Right Kidney: 10.4 x 4.8 x 4.7 cm Left Kidney: 11.4 x 5.0 x 4.8 cm Post Void Residual Volume: 8.8 mL Technical limitations due to patient's body habitus, limited mobility, and large amount of overlyin g bowel gas Right Kidney: limited evaluation, Inferior pole obscured by bowel gas Left Kidney: limited evaluation, Inferior pole obscured by bowel gas Bladder: appears wnl Bilateral Jets seen: no Normal Post Void Residual: yes There is no evidence for hydronephrosis at this point in time. No nephrolithiasis is seen. No jose juan s are identified. The urinary bladder is anechoic. IMPRESSION: 1. Limited evaluation due to bowel gas. No evidence for obstructive uropathy. 2. Cortical thinning suggestive of some degree of atrophy/medical renal disease.
== END | disposition home or self-care (01) ==
LOC: RADUSWWP 16:24
PROVIDERS: ATTEND Internal Medicine Nephrology
DX: N18.32 Chronic kidney disease, stage 3b (principal); R14.3 Flatulence
CPT/HCPCS: 76770

== ENCOUNTER → 2023-10-18 | Outpatient (CLI) | payer MEDICARE, OTHER ==
--- NOTE | 2023-10-21 09:26 | MM ---
Reason for Exam: Screening (asymptomatic). Last mammogram was performed 1 year(s) and 1 month(s) ago. Patient History: Menarche at age 13. First Full-Term at age 20. Postmenopausal. Benign Core Biopsy on the right side. Mother had breast cancer, age 69. Risk Values: Leah 5 year model risk: 3.6%. NCI Lifetime model risk: 7.7%. Prior Study Comparison: 05/19/2020 Bilateral Screening Mammogram, [facility]. 08/11/2021 Bilateral Screening Mammogram, [facility]. 09/17/2022 Bilateral MG 3D screening mammo w/cad, [facility]. Tissue Density: The breasts are almost entirely fatty. Findings: Analyzed By CAD. There is no suspicious group of microcalcifications or new suspicious mass in either breast. Overall Assessment: Negative, BI-RAD 1 Management: Screening Mammogram of both breasts in 1 year. . Patient should continue monthly self-breast exams. A clinical breast exam by your physician is recommended on an annual basis. This exam should not preclude additional follow-up of suspicious palpable abnormalities. Note on Leah scores and lifetime risk: 1. A Leah score greater than 3% is considered moderate risk. If this is the case, consider specialist referral to assess eligibility for a risk reducing agent. 2. If overall lifetime risk for the development of breast cancer is 20% or higher, the patient may qualify for future screening with alternating mammogram and breast MRI. Electronically signed and approved by: Adria Cope M.D. Radiologis
== END | disposition home or self-care (01) ==
LOC: RADMAMWWP 08:19
PROVIDERS: ATTEND Family Medicine
DX: Z12.31 Encounter for screening mammogram for malignant neoplasm of breast (principal); Z80.3 Family history of malignant neoplasm of breast; Z78.0 Asymptomatic menopausal state
CPT/HCPCS: 77063; 77067